=== PATIENT | female | born 2000 | race Caucasian/White ===

== ENCOUNTER 2020-09-16 23:37 | Outpatient (CLI) | payer OTHER ==
[~2020-09-16] VITALS: Ht 152.4 cm; Wt 75.0 kg
--- NOTE | 2020-09-16 23:45 | NUR ---
2345- PATIENT AMBULATORY TO THE UNIT WITH BY HER SIDE. ORIENTATED TO ROOM AND CHANGED INTO CLEAN GOWN. PATIENT REPORTS HAVING JESUS ON AND OFF SINCE YESTERDAY BUT OVER THE LAST HOUR OR SO THEY HAVE BEEN 5-7 MINUTES APART AND GETTING MORE UNCOMFORTABLE. PATIENT STATES SHE HAS HAD A LITTLE BLOODY SHOW TODAY AND HAD HER MEMBRANES SWEPT 2 DAYS AGO IN THE OFFICE. PATIENT VERBALIZES GOOD MOVEMENT AND DENIES LOF. 2351- EFM AND TOCO ON AND TRACING. VITALS SIGNS TAKEN, ASSESSMENT COMPLETED. PLAN OF CARE DISCUSSED. PATIENT DENIES FURTHER NEEDS. CALL LIGHT WITHIN REACH.
[2020-09-17] MEDS ORDERED: PRENATAL TABLET PO (00:11)
[2020-09-17 01:00] VITALS: BP 131/84; PULSE 90; TEMP 98.3
--- NOTE | 2020-09-17 01:15 | NUR ---
AFTER TALKING WITH PROVIDER WENT AND GAVE PATIENT THE OPTION TO STAY ONE MORE HOUR AND SEE. PATIENT AND SPOUSE AGREED AND ASKED ABOUT AMBULATING INSTEAD OF STAYING IN BED. DISCUSSED THIS WAS ALLOWED. ADVISED AFTER 40 MINUTES I WOULD NEED TO PUT HER BACK ON THE MONITOR AND CHECK ON BABY AND THEN RECHECK HER A LITTLE AFTER 0200. PATIENT AND SPOUSE AGREED. PATIENT DENIES FURTHER NEEDS. REMOVED MONITORS AND PATIENT IS AMBULATING.
[2020-09-17 02:25] VITALS: BP 123/74; PULSE 91; TEMP 98.3
== END 2020-09-17 02:40 | disposition home or self-care (01) ==
LOC: LDRO 23:37
DX: O62.9 Abnormality of forces of labor, unspecified (principal); Z3A.39 39 weeks gestation of pregnancy

== ENCOUNTER 2020-09-18 16:40 | Outpatient (CLI) | payer OTHER ==
[~2020-09-18] VITALS: Ht 152.4 cm; Wt 75.0 kg
[~2020-09-18 16:40] MED LIST: PRENATAL TABLET PO
--- NOTE | 2020-09-18 16:40 | NUR ---
Presents to labor and delivery. States having contractions every five to seven minutes. Assessment done, questions offered and answered.
[2020-09-18 17:53] VITALS: BP 135/89; PULSE 94; TEMP 98.1
[2020-09-19] MEDS ORDERED: MOTRIN 800800 MG/TAB PO (16:36)
== END 2020-09-18 18:00 | disposition home or self-care (01) ==
LOC: LDRO 16:40 → LDR 16:40 → LDRO 18:00
DX: O62.9 Abnormality of forces of labor, unspecified (principal); Z3A.39 39 weeks gestation of pregnancy
CPT/HCPCS: OP

== ENCOUNTER 2020-09-19 00:14 | Inpatient (IN) | payer OTHER ==
[2020-09-19] VITALS (36 sets, daily range): BP systolic 108–158; BP diastolic 52–94; PULSE 81–125; TEMP 97.9–98.8
[~2020-09-19] VITALS: Ht 152.4 cm; Wt 75.5 kg
[2020-09-19 00:54] LABS: BASO % 0.2 % (0.0-2.0); EOS # 0.1 (0.0-0.7); EOS % 0.5 % (0-4.0); GRAN # 14.7 (1.4-6.5); GRAN % 79.2 % (42.2-75.2); HEMOGLOBIN 12.3 g/dl (12.5-16.0); LYMPH # 2.5 (1.2-3.4); LYMPH % 13.7 % (20.0-51.0); MEAN CELL VOLUME 86 fl (80.0-100.0); MEAN CORPUSCULAR HEMOGLOBIN 29 pg (27.0-31.0); MEAN CORPUSCULAR HGB CONC 34 g/dl (33.0-37.0); MEAN PLATELET VOLUME 10.3 fl (7.4-10.4); MONO # 1.1 (0.1-0.6); MONO % 5.8 % (1.7-9.3); PLATELET COUNT 356 K/mm3 (130-400); RED BLOOD COUNT 4.24 M/mm3 (4.10-5.30); REDCELL DISTRIBUTION WIDTH-CV 14.1 % (11.5-14.5)
[2020-09-19 00:56] LABS: HEMATOCRIT 36.4 % (37.0-47.0)
[2020-09-19] MEDS ORDERED: MOTRIN 800800 MG/TAB PO (16:36)
[2020-09-20 02:00] VITALS: BP 118/71; PULSE 84
[2020-09-20 10:45] VITALS: BP 121/72; PULSE 80; TEMP 97.8
[2020-09-20 16:45] VITALS: BP 118/77; PULSE 82; TEMP 98.4
== END 2020-09-20 18:10 | disposition home or self-care (01) | DRG 807 ==
LOC: LDRO 00:14 → LDR 00:35 → OB 00:35 → LDR 00:36 → OB 12:00
PROVIDERS: Student in an Organized Health Care Education/Training Program; ADMIT Obstetrics & Gynecology
PROC: 10E0XZZ Delivery of Products of Conception, External Approach (ICD-10-PCS; principal; 2020-09-19)
PROC: 0KQM0ZZ Repair Perineum Muscle, Open Approach (ICD-10-PCS; 2020-09-19)
DX: O70.1 Second degree perineal laceration during delivery (principal); Z37.0 Single live birth; O77.0 Labor and delivery complicated by meconium in amniotic fluid; Z3A.39 39 weeks gestation of pregnancy
CPT/HCPCS: J2405; J2590; J2795; J7120